=== PATIENT | female | born 1980 | race Native Hawaiian/Other Pacific Islander ===

== ENCOUNTER 2018-11-09 20:12 | Inpatient (IN) | payer OTHER ==
[~2018-11-09] VITALS: Ht 172.7 cm; Wt 125.7 kg
[2018-11-09 20:28] VITALS: BP 158/81; TEMP 99
[2018-11-09 20:52] LABS: PLATELET COUNT 409 K/uL (152-353)
[2018-11-09 21:06] LABS: POTASSIUM 3.2 mmol/L (3.6-5.2)
[2018-11-09 22:00] VITALS: BP 125/77; TEMP 97.9
[2018-11-10 01:00] VITALS: BP 126/69; TEMP 97.5
[2018-11-10 03:55] VITALS: BP 110/62; TEMP 97.7; Ht 172.7 cm; Wt 125.7 kg
[2018-11-10 04:00] VITALS: BP 127/75; TEMP 97.5
[2018-11-10 05:48] LABS: PLATELET COUNT 309 K/uL (152-353)
[2018-11-10 06:02] LABS: POTASSIUM 2.8 mmol/L (3.6-5.2)
[2018-11-10 08:00] VITALS: BP 116/70; TEMP 97.2
[2018-11-10 12:04] VITALS: BP 112/75; TEMP 97.5
[2018-11-10 16:00] VITALS: BP 140/86; TEMP 98.1
== END 2018-11-10 17:20 | disposition home or self-care (01) | DRG 392 ==
LOC: ED 20:12 → MED/SURG 11-10 00:43
PROVIDERS: Family Medicine; ADMIT Student in an Organized Health Care Education/Training Program
DX: A08.39 Other viral enteritis (principal); N17.8 Other acute kidney failure; N39.0 Urinary tract infection, site not specified; E87.1 Hypo-osmolality and hyponatremia; N18.4 Chronic kidney disease, stage 4 (severe); E87.6 Hypokalemia; E86.0 Dehydration
CPT/HCPCS: 36415; 80053; 81000; 81025; 83690; 83735; 84132; 85027; 93005; 96361; 96365; 96375; 99284; J2270; J2405